=== PATIENT | female | born 1970 | race Caucasian/White ===

== ENCOUNTER → 2017-08-30 10:00 | Outpatient (CLI) | payer OTHER, SELFPAY ==
[2017-08-30 11:27] LABS: Cholesterol 175 mg/dL (200); Glucose 69 mg/dL (74-106); High Density Lipoprotein 63 mg/dL; T4 Free Direct 0.86 ng/dL (0.76-1.46); Thyroid Stim Hormone (TSH) 1.55 uIU/mL (0.358-3.74); Triglycerides 88 mg/dL; Very Low Density Lipoprotein 18 mg/dL (5-40)
== END ==
PROVIDERS: Family Provider Family Medicine; PCP Family Medicine; Visit Provider Family Medicine
DX: F41.8 Other specified anxiety disorders (principal); Z13.1 Encounter for screening for diabetes mellitus; Z13.220 Encounter for screening for lipoid disorders
CPT/HCPCS: 36415; 80061; 82947; 84439; 84443

== ENCOUNTER → 2018-04-24 14:11 | Outpatient (CLI) | payer OTHER, SELFPAY ==
--- NOTE | 2018-04-24 14:30 | RAD_ITS ---
STUDY: X-RAY CHEST REASON FOR EXAM: Female, 47 years old. Cough and fever. TECHNIQUE: Frontal and lateral views of the chest. COMPARISON: 03/22/2015. FINDINGS: There is hyperinflation of the lungs consistent with chronic obstructive lung disease (COPD). No infiltrates or effusions. There is no demonstrated pleural abnormality. Normal size heart. Normal mediastinum and saroj. Normal visualized pulmonary arteries. Normal visualized aortic arch and descending thoracic aorta. Normal visualized thoracic spine. Normal visualized ribs, clavicles, and shoulders. There is no demonstrated abnormality of the visualized soft tissue structures of the upper abdomen. RAD/Chest PA and Lateral IMPRESSION: There are findings consistent with COPD. There is no evidence of acute chest disease. Electronically Signed: Donald Davis MD at 17:54 EST , Service support ,
== END ==
PROVIDERS: Family Provider Family Medicine; PCP Family Medicine; Referring Provider Family Medicine; Visit Provider Family Medicine
DX: J18.9 Pneumonia, unspecified organism (principal)
CPT/HCPCS: 71046

== ENCOUNTER → 2020-03-01 10:23 | Outpatient (CLI) | payer OTHER, SELFPAY | PROVIDERS: PCP Family Medicine; Referring Provider Family Medicine; Visit Provider Family Medicine | DX: Z20.828 Contact with and (suspected) exposure to other viral communicable diseases (principal) | CPT/HCPCS: 87635; C9803; U0003 ==

== ENCOUNTER → 2020-11-20 21:16 | Outpatient (CLI) | payer OTHER, SELFPAY ==
[2020-11-20 22:25] LABS: Probe Check PASS; Specimen Processing Control PASS
== END ==
PROVIDERS: PCP Family Medicine; Referring Provider Physician Assistant Surgical; Visit Provider Physician Assistant Surgical
DX: R09.81 Nasal congestion (principal)
CPT/HCPCS: 87635; U0005; U0003

== ENCOUNTER → 2020-11-24 15:39 | Outpatient (CLI) | payer OTHER, SELFPAY | PROVIDERS: PCP Family Medicine; Referring Provider Family Medicine; Visit Provider Family Medicine | DX: Z20.822 Contact with and (suspected) exposure to COVID-19 (principal) | CPT/HCPCS: 87635; U0005; U0003 ==

== ENCOUNTER 2023-04-27 18:25 | Emergency (ER) | payer OTHER, SELFPAY ==
[2023-04-27 18:26] VITALS: BP 103/76; PULSE 83; RESP 18; TEMP 36.9; O2SAT 100; BMI 21.2
--- NOTE | 2023-04-27 18:56 | CT_ITS ---
STUDY: CT Abdomen And Pelvis W/ Contrast Injection 04/27/2023 9:01 PM REASON FOR EXAM: Female, 52 years old. ABDOMINAL PAIN abdominal pain -- IV PO Contrast TECHNIQUE: Transaxial images were obtained with oral contrast, and Gastrografin and amp; 100mL Isovue-370 intravenous contrast. Individualized dose optimization techniques were used for this CT. COMPARISON: None FINDINGS: The visualized lung bases are unremarkable. The visualized portions of the heart are within normal limits. Unremarkable liver. Unremarkable gallbladder and extrahepatic biliary system. Unremarkable spleen. Unremarkable pancreas. Unremarkable bilateral adrenal glands. No acute findings of the right kidney. No acute findings of the left kidney. Unremarkable visualized stomach. Unremarkable small intestine. Unremarkable colon. The appendix is visualized and appears unremarkable. There are no acute findings of the abdominal aorta. Unremarkable inferior vena cava. Subcentimeter mesenteric lymph nodes. Unremarkable urinary bladder. There is absence of the uterus consistent with a prior hysterectomy. Unremarkable abdominal wall. Unremarkable osseous structures. CT/Abdomen/Pelvis WITH Contrast IMPRESSION: (NOT LISTED IN ORDER OF SIGNIFICANCE) There are no acute findings. Other findings as above. Electronically Signed: Domingo Moyer MD at 21:03 [facility] ,
--- NOTE | 2023-04-27 18:58 | EX.ED.DYSGE1 ---
HPI History of Present Illness Chief Complaint: Abd Pain Informant: patient and spouse/S.O. Narrative Narrative: 52-year-old female presenting to the emergency room with abdominal pain. Patient states about a month ago she began to have diarrhea x 1 daily. She notes a periumbilical left-sided abdominal pain since. Over the past couple days it seems to have moved and settled in the right lower quadrant. She has been trying to eliminate things from her diet with no change. She notes a history of irritable bowel. She states Crohn's disease runs in her family. She denies any fever. She denies any vomiting or rashes. No weight loss. She states that she takes medications as needed for migraines. [facility] Medical History (Updated 04/27/23 @ 21:[address] Darinel Jeffery DO) COVID-19 Migraines Home Medications citalopram 20 mg tablet 20 mg PO DAILY 04/27/23 [History Last Taken Unknown] dicyclomine 10 mg capsule 20 mg (2 x 10 mg) PO TIDAC #20 CAPSULES 04/27/23 [Rx Last Taken Unknown] hydrocodone-acetaminophen 5-325mg 5mg-325mg 1 tab PO Q6H PRN PRN Pain 3 days #12 TABLETS 04/27/23 [Rx Last Taken Unknown] Allergy/AdvReac Type Severity Reaction Status Date / Time erythromycin base Allergy Rash Verified 04/27/23 18:26 Surgical History H/O: hysterectomy Social History Smoking Status: Current some day smoker tobacco type: cigarettes and e-cigarettes ROS ROS ED Constitutional Constitutional ED: Denies chills, fever(s) or weight loss Eyes Eyes: Denies change in vision or diplopia ENT ENT ED: Denies ear pain, rhinorrhea or sore throat Cardiovascular Cardiovascular: Denies chest pain, orthopnea, palpitations or racing heartbeat Respiratory/Chest Respiratory/Chest: Denies cough, dyspnea or orthopnea Gastrointestinal Gastrointestinal: Reports abdominal pain and diarrhea; Denies nausea or vomiting Genitourinary Genitourinary ED: Denies dysuria, hematuria or urinary frequency Musculoskeletal Musculoskeletal: Denies arthralgias or myalgias Integumentary Denies abscess or rash Neurologic Neurologic: Denies headache(s) or weakness Psychiatric Psychiatric: Denies anxiety, depression, suicidal ideation or suicidal thoughts Endocrine Endocrinology: Denies polydipsia, polyphagia or polyuria Allergic/Immunologic Allergic/Immunologic ED: Denies mouth swelling, tongue swelling or urticaria EXAM Physical Exam Const Vital Signs: 04/27/23 18:26 04/27/23 22:03 Temperature 98.5 F Temperature Source Temporal Pulse Rate 83 74 Respiratory Rate 18 16 Blood Pressure 103/76 109/70 Blood Pressure Mean 85 83 Pulse Ox 100 97 Oxygen Delivery Method Room Air Positive well nourished and well developed General Appearance ED: well developed HEENT Reports normocephalic, head/scalp atraumatic and moist mucous membranes Eyes PERRL and EOMs intact bilaterally Neck no lymphadenopathy, supple and no JVD Resp normal respiratory effort and clear to auscultation bilaterally Cardio regular rate, regular rhythm and no murmurs GI GI Narrative: Diffuse tenderness to palpation throughout the abdomen greatest in the right lower quadrant. The abdomen is still soft. I would not characterize this as surgical. Inspection: Negative for abdominal distention Auscultation: normoactive bowel sounds Palpation: soft, tender and guarding Back/Spine no CVA tenderness and normal ROM Extremity normal to inspection General Extremety ED: Negative for edema General Extremity: Negative for edema Neuro oriented x3 and CN's II-XII intact bilaterally Sensorium / Orientation: alert Motor Exam: strength 5/5 throughout Psych mental status grossly normal Mood & Affect: Negative for depressed or tearful Skin no rashes or lesions noted and no wounds MDM MDM MDM Narrative Medical decision making narrative: Patient received morphine Zofran and IV fluids. Basic blood work is essentially normal. White count is 8 lipase 91 of nonspecific meaning. Urinalysis negative. CT of the abdomen pelvis with oral and IV contrast does not really show anything acute. I think at this point it is okay to have the patient discharged home. Differential still fairly broad. There are some mesenteric lymph nodes mentioned by the radiologist but I do not think this should be going on for about a month. I do not see any evidence of ureterolithiasis UTI colitis uterine/ovarian pathology biliary dysfunction or masses. Daily diarrhea has not resulted in significant electrolyte abnormalities or dehydration. Could very well be allergic or intolerance as well as potential for autoimmune. I recommend that she follow-up with primary care and possibly GI. I do understand GI is very difficult to get into especially in her area. Patient notes understanding of her plan. History & Record Review Discussion w/independent historian: Patient and Family Lab Data Attestation: I reviewed the patient's lab results. Labs: Laboratory Results - last 24 hr 04/27/23 04/27/23 19:05 20:00 WBC 8.0 RBC 4.87 Hgb 13.4 Hct 41.0 MCV 84.2 MCH 27.5 MCHC 32.7 RDW Std Deviation 39.3 RDW Coeff of Mckenna 12.8 Plt Count 327 MPV 9.9 Immature Gran % (Auto) 0.300 Neut % (Auto) 44.9 L Lymph % (Auto) 46.0 H [place] % (Auto) 6.6 Eos % (Auto) 1.6 Baso % (Auto) 0.6 Absolute Neuts (auto) 3.6 Absolute Lymphs (auto) 3.67 Nucleated RBC % 0 Sodium 142 Potassium 3.7 Chloride 109 H Carbon Dioxide 30.0 Anion Gap 3 L BUN 11 Creatinine 0.76 Estim Creat Clear Calc 77.92 Est GFR (MDRD) Af Amer 102 Est GFR (MDRD) Non-Af 84 BUN/Creatinine Ratio 14.4 Glucose 99 Calcium 9.0 Total Bilirubin 0.30 Direct Bilirubin 0.07 AST 11 L ALT 16 Alkaline Phosphatase 81 Total Protein 6.9 Albumin 3.7 Globulin 3.2 Lipase 91 H Urine Color Yellow Urine Clarity Clear Urine pH 7.0 Ur Specific [place] 1.010 Urine Protein 15 H Urine Glucose (UA) Normal Urine Ketones Negative Urine Occult Blood 25 H Urine Nitrite Negative Urine Bilirubin Negative Urine Urobilinogen Normal Ur Leukocyte Esterase 25 H Urine RBC 0-5 SEEN Urine WBC 0-5 SEEN Ur Squamous Epith Cells 0-5 SEEN Amorphous Sediment 1+ PHOS Urine Bacteria 0 SEEN Urine Mucus 0 SEEN Urine Trichomonas 0 SEEN Radiography Diagnostic Testing: Clinical Impression(s) from Imaging Studies Abdomen/Pelvis CT 04/27/23 18:56 IMPRESSION: (NOT LISTED IN ORDER OF SIGNIFICANCE) There are no acute findings. Other findings as above. Electronically Signed: Domingo Moyer MD at 21:03 EST , Discharge Plan Triage Chief Complaint: Abd Pain ED Provider: Darinel Jeffery Dx/Rx/DC Orders Clinical Impression: Diarrhea, Abdominal pain Instructions: Abdominal Pain Prescriptions: New hydrocodone-acetaminophen [hydrocodone-acetaminophen] 5-325 mg tablet 1 tab PO Q6H PRN PRN (Reason: Pain) 3 Days Qty: 12 0RF dicyclomine 10 mg capsule 20 mg PO TIDAC Qty: 20 0RF No Action citalopram 20 mg tablet 20 mg PO DAILY Primary Care Provider: Samantha Baker Referrals: Gui Christopher DO [Med Staff - Active Staff] - As soon as possible Michael Guzman MD [Non-Staff] - Disposition Disposition: Home, Self Care
--- OUTSIDE RECORDS SUMMARY | 2023-04-27 19:01 | XMS RPT_ITS | CCD ---
Author Name Unknown Address [id number] [place] [address] Organization [facility] Care Team Providers Care Senior Patient Account Representative Name Role Phone SHEILA CASTILLO Unavailable Unavailable MICHAEL GUZMAN Unavailable Unavailable MICHAEL GUZMAN Unavailable Unavailable Ronnie MOYA, Kyler Sterling Unavailable Thomas MOYA, Michael Aviles Primary Care Provider Thomas MOYA, Michael Aviles Primary Care Provider ILEANA MCKINNEY II Attending ILEANA Ocasio II Referring MICHAEL Alaniz Primary Care Unavailable MICHAEL GUZMAN Primary Care Unavailable MICHAEL GUZMAN Primary Care Unavailable MICHAEL KUHN Attending Unavailable MICHAEL GUZMAN Primary Care Unavailable Allergies Allergy Classification Reported Allergen(s) Allergy Type Date of Onset Reaction(s) Facility (5 sources) Erythromycin; Translations: [ERYTHROMYCIN] Drug Allergy 09-20-2008 [facility] Work Phone: Medications Current Medications Medication Drug Class(es) Dates Sig (Normalized) Sig (Original) predniSONE 10 mg oral tablet (1 source) Start: 07-12-2021 End: 07-21-2021 predniSONE (DELTASONE) 10 mg tablet Indications: Left sided sciatica Take 4 tabs daily for 3 days, then 2 tabs daily for 3 days, then 1 tab daily for 3 days with food. 21 tablet 0 07/12/2021 07/21/2021 Active Completed/Discontinued Medications Medication Drug Class(es) Dates Sig (Normalized) Sig (Original) acetaminophen 500 mg oral tablet (2 sources) take 1 tablet by mouth every eight hours as needed acetaminophen (TYLENOL) 500 mg tablet Take 500 mg by mouth every 8 hours as needed. 0 Active Problems Active Problems Problem Classification Problem Date Documented Date Episodic/Chronic Abdominal pain (7 sources) Left lower quadrant pain; Translations: [Left lower quadrant pain] Onset: 05-17-2011 05-17-2011 Episodic Adjustment disorders (2 sources) Adjustment disorder with depressed mood; Translations: [Adjustment disorder with depressed mood] Onset: 09-19-2010 09-19-2010 Chronic Genitourinary symptoms and ill-defined conditions (1 source) Microscopic hematuria; Translations: [Other microscopic hematuria] Episodic Headache; including migraine (2 sources) Migraine; Translations: [Migraine, unspecified, not intractable, without status migrainosus] Onset: 02-09-2008 08-15-2009 Chronic Open wounds of extremities (1 source) Laceration of hand; Translations: [Laceration without foreign body of left hand, initial encounter] Onset: 01-05-2020 01-05-2020 Episodic Other connective tissue disease (1 source) Tenosynovitis of wrist; Translations: [Synovitis and tenosynovitis, unspecified] Onset: 02-03-2020 02-03-2020 Episodic Other female genital disorders (2 sources) Dyspareunia; Translations: [Dyspareunia] Onset: 07-06-2012 07-06-2012 Chronic Other nervous system disorders (1 source) Carpal tunnel syndrome, left upper limb; Translations: [Carpal tunnel syndrome, left upper limb] Onset: 01-05-2020 01-05-2020 Chronic Spondylosis; intervertebral disc disorders; other back problems (1 source) Sciatica; Translations: [Sciatica, left side] Episodic Unclassified (1 source) Low back pain without sciatica, unspecified back pain laterality, unspecified chronicity; Translations: [Low back pain without sciatica, unspecified back pain laterality, unspecified chronicity] Onset: 05-07-2022 Past or Other Problems Problem Classification Problem Date Documented Date Episodic/Chronic Other connective tissue disease (2 sources) Pain in left lower limb; Translations: [Pain in left leg] Onset: 05-17-2011 05-17-2011 Episodic Other connective tissue disease (2 sources) Pain in limb; Translations: [Pain in unspecified limb] Onset: 05-31-2011 05-31-2011 Episodic Other connective tissue disease (2 sources) Pain in bilateral legs; Translations: [Pain in right leg] Onset: 06-12-2011 06-12-2011 Episodic Other female genital disorders (2 sources) Cervical intraepithelial neoplasia grade 2; Translations: [Moderate cervical dysplasia] Onset: 05-17-2011 05-17-2011 Episodic Other nervous system disorders (2 sources) Skin sensation disturbance; Translations: [Unspecified disturbances of skin sensation] Onset: 05-31-2011 05-31-2011 Episodic Other non-traumatic joint disorders (2 sources) Shoulder joint pain; Translations: [Pain in unspecified shoulder] Onset: 09-06-2009 09-06-2009 Episodic Residual codes; unclassified (2 sources) Family history of ischemic heart disease and other diseases of the circulatory system; Translations: [Family history of other cardiovascular diseases] Onset: 02-09-2008 08-15-2009 Episodic Unclassified (1 source) Problem Urinary tract infections (2 sources) Lower urinary tract infectious disease; Translations: [Urinary tract infection, site not specified] Onset: 02-26-2013 02-26-2013 Episodic Results Test Name Value Interpretation Reference Range Facil ity Vital Signs Date Time Vital Sign Value Performing Clinician Facility 05-07-2022 13:31-0500 Body temperature 98.2 [degF] Bessy Athy PA-C Work Phone: [facility] 05-07-2022 13:31-0500 Body weight 58.06 kg Bessy Athy PA-C Work Phone: [facility] 05-07-2022 13:31-0500 Diastolic blood pressure 60 mm[Hg] Bessy Athy PA-C Work Phone: [facility] 05-07-2022 13:31-0500 Heart rate 72 /min Bessy Athy PA-C Work Phone: [facility] 05-07-2022 13:31-0500 Respiratory rate 16 /min Bessy Athy PA-C Work Phone: [facility] 05-07-2022 13:31-0500 SaO2% (BldA) [Mass fraction] 96 % Bessy Athy PA-C Work Phone: [facility] 05-07-2022 13:31-0500 Systolic blood pressure 106 mm[Hg] Bessy Graham PA-C Work Phone: [facility] 07-12-2021 18:55-0400 Body temperature 97.7 [degF] Ami Praisler-Wood WHIPPER BEATER.[employer] Work Phone: [facility] 07-12-2021 18:55-0400 Body weight 52.8 kg Ami Praisler-Wood WHIPPER BEATER.[employer]ING [employer] Work Phone: [facility] 07-12-2021 18:55-0400 Diastolic blood pressure 64 mm[Hg] Ami Praisler-Wood WHIPPER BEATER.WE[employer]ING [employer]ER Work Phone: [facility] 07-12-2021 18:55-0400 Heart rate 85 /min Ami Praisler-Wood WHIPPER BEATER.WEARING [employer]ER Work Phone: [facility] 07-12-2021 18:55-0400 Respiratory rate 16 /min Ami Praisler-Wood WHIPPER BEATER.WE[employer]ING [employer] Work Phone: [facility] 07-12-2021 18:55-0400 SaO2% (BldA) [Mass fraction] 99 % Ami Praisler-Wood WHIPPER BEATER.WE[employer]ING [employer] Work Phone: [facility] 07-12-2021 18:55-0400 Systolic blood pressure 98 mm[Hg] Ami Praisler-Wood WHIPPER BEATER.WE[employer] Work Phone: [facility] NEGATED: Highlighted [id number] 10:40-0500 BMI (Body Mass Index) 19.28 kg/m2 Valerie Lazo LPN [facility] Work Phone: NEGATED: Highlighted [id number] 10:40-0500 Body weight 54 kg Valerie Lazo LPN [facility] Work Phone: NEGATED: Highlighted [id number] 10:40-0500 Body weight 53.98 kg Valerie Lazo LPN [facility] Work Phone: NEGATED: Highlighted [id number] 10:40-0500 Height 168 cm Valerie Lazo LPN [facility] Work Phone: NEGATED: Highlighted [id number] 10:40-0500 Height 167.64 cm Valerie Lazo LPN [facility] Work Phone: Encounters Encounter Date Encounter Type Care Provider Facility Start: 05-07-2022 End: 05-07-2022 Emergency department patient visit MICHAEL BAM Facility:[facility] Start: 05-07-2022 End: 05-07-2022 ambulatory MICHAEL GUZMAN Facility:[facility] Start: 05-07-2022 End: 05-07-2022 Patient encounter procedure Bessy Graham PA-C Work Phone: [facility] Procedures Date Procedure Procedure Detail Performing Clinician Start: 05-07-2022 Urnls dip stick/tabl et rgnt auto w/o microscopy Bessy Graham PA-C Work Phone: Start: 02-03-2020 End: 02-03-2020 Blood pressure screening not performed - reason not given Kyler Trujillo MD Work Phone: Start: 02-03-2020 End: 02-03-2020 BMI documented within normal parameters - no follow-up plan is required Kyler Trujillo MD Work Phone: Start: 02-03-2020 End: 02-03-2020 Documentation of current medications Kyler Trujillo MD Work Phone: Start: 02-03-2020 End: 02-03-2020 Pain assessment documented as positive - follow-up documented Kyler Trujillo MD Work Phone: Start: 02-03-2020 End: 02-03-2020 Pt tobacco screen rcvd tlk Kyler Trujillo MD Work Phone: Start: 12-23-2017 Mammography Ami Gonzalez WHIPPER [employer]ATER.[employer] Work Phone: Start: 06-29-2015 Colonoscopy Ami Gonzalez WHIPPER BEATER.[employer]ING [employer] Work Phone: NEGATED: Highlighted rowStart: 02-03-2020 End: 02-03-2020 Documentation of current medications Valerie Lazo LPN NEGATED: Highlighted rowStart: 02-03-2020 End: 02-03-2020 Smoking cessation education Valerie Lazo LPN Plan of Treatment Date Care Activity Detail Author Start: 06-28-2025 Colonoscopy COLONOSCOPY [facility] Start: 06-28-2025 COLORECTAL CANCER SCREENING COLORECTAL CANCER SCREENING [facility] Start: 05-07-2025 DIABETES SCREEN DIABETES SCREEN [facility] Start: 03-31-2022 DEPRESSION ASSESSMENT DEPRESSION ASSESSMENT [facility] Start: 11-29-2021 Influenza vaccination [facility] Start: 01-15-2021 COVID-19 VACCINE (3 - Booster for Moderna series) COVID-19 VACCINE (3 - Booster for Moderna series) [facility] Start: 10-10-2020 COVID-19 VACCINE (3 - Booster for Moderna series) COVID-19 VACCINE (3 - Booster for Moderna series) [facility] Start: 07-09-2020 HPV TESTING HPV TESTING [facility] Start: 2020 SHINGRIX VACCINE (1 of 2) SHINGRIX VACCINE (1 of 2) [facility] Start: 02-03-2020 End: 02-03-2020 Appointment Appointment [facility] Work Phone: Start: 02-03-2020 End: 02-03-2020 Appointment Appointment [facility] Work Phone: Start: 12-23-2018 Mammography MAMMOGRAM [facility] Start: 07-09-2018 PAP TESTING PAP TESTING [facility] Start: 07-03-2015 COLOGUARD (FIT-DNA) COLOGUARD (FIT-DNA) [facility] Start: 07-03-[address] COLONOGRAPHY [facility] Start: 07-03-2015 DIABETES SCREEN DIABETES SCREEN [facility] Start: 07-03-2015 FECAL OCCULT BLOOD FECAL OCCULT BLOOD [facility] Start: 07-03-2015 LIPID SCREEN LIPID SCREEN [facility] Start: 07-03-2015 SIGMOIDOSCOPY SIGMOIDOSCOPY [facility] Start: 1989 Urine microalbumin profile DTAP,TDAP,TD (1 - Tdap) [facility] Start: 1988 HEPATITIS C SCREENING HEPATITIS C SCREENING [facility] Start: 1988 HIV SCREENING HIV SCREENING [facility] Start: 1982 Adult depression screening assessment DEPRESSION SCREENING [facility] Start: 1976 PNEUMOCOCCAL (1 - PCV) PNEUMOCOCCAL (1 - PCV) [facility] Start: 1970 HEPATITIS B (1 of 3 - 3-dose series) HEPATITIS B (1 of 3 - 3-dose series) [facility] Bacteria identified in Urine by Culture URINE CULTURE Microbiology Routine Flank pain 05/07/2022 2:08 PM EST [facility] Work Phone: Patient Education \[id number] PtEducatio [id number] [facility] Work Phone: Payers Date Payer Category Payer Unknown [id number] 2018 Unknown MMO MMO [employer] [id number] 2018-Present [phone] [address] [place] [address] PPO [id number] 2018 Unknown MMO MMO [employer] [id number] 2018-Present [phone] [address] [place] [address] PPO [id number] 2017 Unknown [id number] Social History Date Type Detail Facility Start: 02-03-2020 End: 02-03-2020 Assertion Unknown if ever smoked [facility] Work Phone: Start: 11-21-2017 End: 05-07-2022 Tobacco smoking status NHIS Smokes tobacco daily [facility] Work Phone: Start: 11-21-2017 End: 05-07-2022 Cigarettes smoked current (pack per day) - Reported 0.4 [facility] Start: 11-21-2017 End: 05-07-2022 Tobacco use and exposure Smokeless tobacco non-user [facility] Work Phone: Start: 07-12-2021 End: 05-07-2022 Alcohol intake Current drinker of alcohol (finding) [facility] Start: 1970 Sex Assigned At Not on file C [facility] Start: 2021 End: 07-12-2021 Exposure to SARS-CoV-2 (event) Not sure [facility] History of tobacco use Cigarette Smoker [facility] Work Phone: NEGATED: Highlighted rowStart: 02-03-2020 End: 02-03-2020 Tobacco use and exposure Tobacco use and exposure [facility] Work Phone: Progress note 05-07-2022 Note Date & Type Note Facility 05-07-2022 Note HNO ID: [id number] Author: Bessy Graham PA-C Service: ? Author Type: Physician Volunteer Specialist Type: Progress Notes Filed: 05/07/2022 2:06 PM Note Text: This note was created using [employer]. Subjective Mihaela Yi is a 51 year old female. HPI Patient presents with right lower back pain since yesterday. She states she was sitting at her computer when it had started suddenly. She rates it 8/10. States it almost felt like period cramps at first and then she started getting worsening pain throughout the day. She is status post hysterectomy. She denies any dysuria, frequency or hematuria. She denies any fever or vomiting. She does have a history of left-sided sciatica but this does not feel similar. No history of kidney stones. Review of Systems HENT: Negative. Cardiovascular: Negative. Gastrointestinal: Negative. Genitourinary: Positive for pelvic pain. Musculoskeletal: Positive for back pain. PAST MEDICAL HISTORY Diagnosis Date GERD (gastroesophageal reflux disease) Leiomyoma of uterus, unspecified Lower abdominal pain migraines Papanicolaou smear of cervix with low grade squamous intraepithelial lesion (LGSIL) 2011 Current Outpatient Medications Medication Sig Dispense Refill naproxen sodium 220 mg cap Take by mouth. CITALOPRAM HYDROBROMIDE (CELEXA ORAL) Take 10 mg by mouth once daily. acetaminophen (TYLENOL) 500 mg tablet Take 500 mg by mouth every 8 hours as needed. ibuprofen (MOTRIN) 200 mg tablet Take 200 mg by mouth every 6 hours as needed. sumatriptan (IMITREX) 50 mg tablet Take one pill at the onset of migraine, may repeat in 2 hours if needed 6 tablet 2 cyclobenzaprine (FLEXERIL) 10 mg tablet Take 1 tablet by mouth three times daily. (Patient not taking: Reported on 05/07/2022) 12 tablet 0 phenazopyridine (PYRIDIUM) 100 mg tablet Take 1 tablet by mouth three times daily as needed. (Patient not taking: Reported on 06/15/2021 ) 6 tablet 0 No current facility-administered medications for this visit. PAST SURGICAL HISTORY Procedure Laterality Date COLONOSCOPY FLX DX W/COLLJ SPEC WHEN PFRMD 06/29/2015 Colonoscopy COLPOSCOPY CERVIX UPPER/ADJACENT VAGINA 2011 Colposcopy DILATION AND CURETTAGE DXAND/THER NONOBSTETRIC 1995 LAP HYSTERECTOMY FOR UTERUS 250G OR LESS 06/2012 [facility], b/l salpingectomy Dr. Law OFFICE LEEP 05/06/2011 Dr Camejo Bare- need paps until 2031 FAMILY HISTORY Problem Relation Age of Onset Diabetes Mother Osteoporosis Mother Cataract Mother Cancer Father scc Hypertension Father Stroke Father Heart Father [place], age 63 Glaucoma Paternal Grandmother Allergies Son Cancer Brother multiple myeloma Colon Cancer Other none Breast Cancer Other Social History Tobacco Use Smoking status: Every Day Packs/day: 0.40 Types: Cigarettes Smokeless tobacco: Never Vaping Use Vaping Use: Never used Substance Use Topics Alcohol use: Yes Alcohol/week: 5.0 standard drinks Types: 2 Mixed Drinks per week Comment: seldom Drug use: No Objective BP 106/60 Pulse 72 Temp 36.8 ?C (98.2 ?F) Resp 16 Wt 58.1 kg (128 lb) LMP 06/16/2012 SpO2 96% BMI 21.30 kg/m? Physical Exam Vitals reviewed. Constitutional: Appearance: Normal appearance. HENT: Head: Normocephalic and atraumatic. Musculoskeletal: Comments: No tenderness on palpation of the lumbar paraspinal musculature or midline. No tenderness on palpation of the abdomen. She does have some pain with range of motion of the right hip. Skin: General: Skin is warm and dry. Neurological: Mental Status: She is alert. Assessment and Plan ASSESSMENT/PLAN: 1. Flank pain - ICD9: 789.09, ICD10: R10.9 (primary diagnosis) -Concern for possible kidney stone vs possibly musculoskeletal pain. She does have moderate blood on her dip here however. She is visibly uncomfortable in pain here. Recommended she be seen in the emergency department. She will go to [facility]. I did call and give report. - UA DIP, URINE (POC) - URINE CULTURE 2. Microscopic hematuria - ICD9: 599.72, ICD10: R31.29 Bessy Graham PA-C [facility] History of Present illness Narrative 05-07-2022 Bessy Graham PA-C - 05/07/2022 1:59 PM EST Note Date & Type Note Facility 05-07-2022 History of Presen t illness Narrative This note was created using [employer]. Subjective Mihaela Yi is a 51 year old female. HPI Patient presents with right lower back pain since yesterday. She states she was sitting at her computer when it had started suddenly. She rates it 8/10. States it almost felt like period cramps at first and then she started getting worsening pain throughout the day. She is status post hysterectomy. She denies any dysuria, frequency or hematuria. She denies any fever or vomiting. She does have a history of left-sided sciatica but this does not feel similar. No history of kidney stones. Review of Systems HENT: Negative. Cardiovascular: Negative. Gastrointestinal: Negative. Genitourinary: Positive for pelvic pain. Musculoskeletal: Positive for back pain. PAST MEDICAL HISTORY Diagnosis Date GERD (gastroesophageal reflux disease) Leiomyoma of uterus, unspecified Lower abdominal pain migraines Papanicolaou smear of cervix with low grade squamous intraepithelial lesion (LGSIL) 2011 Current Outpatient Medications Medication Sig Dispense Refill naproxen sodium 220 mg cap Take by mouth. CITALOPRAM HYDROBROMIDE (CELEXA ORAL) Take 10 mg by mouth once daily. acetaminophen (TYLENOL) 500 mg tablet Take 500 mg by mouth every 8 hours as needed. ibuprofen (MOTRIN) 200 mg tablet Take 200 mg by mouth every 6 hours as needed. sumatriptan (IMITREX) 50 mg tablet Take one pill at the onset of migraine, may repeat in 2 hours if needed 6 tablet 2 cyclobenzaprine (FLEXERIL) 10 mg tablet Take 1 tablet by mouth three times daily. (Patient not taking: Reported on 05/07/2022) 12 tablet 0 phenazopyridine (PYRIDIUM) 100 mg tablet Take 1 tablet by mouth three times daily as needed. (Patient not taking: Reported on 06/15/2021 ) 6 tablet 0 No current facility-administered medications for this visit. PAST SURGICAL HISTORY Procedure Laterality Date COLONOSCOPY FLX DX W/COLLJ SPEC WHEN PFRMD 06/29/2015 Colonoscopy COLPOSCOPY CERVIX UPPER/ADJACENT VAGINA 2011 Colposcopy DILATION & CURETTAGE DX&/THER NONOBSTETRIC 1995 LAP HYSTERECTOMY FOR UTERUS 250G OR LESS 06/2012 [facility], b/l salpingectomy Dr. Law OFFICE LEEP 05/06/2011 Dr Camejo Bare- need paps until 2031 FAMILY HISTORY Problem Relation Age of Onset Diabetes Mother Osteoporosis Mother Cataract Mother Cancer Father scc Hypertension Father Stroke Father Heart Father [place], age 63 Glaucoma Paternal Grandmother Allergies Son Cancer Brother multiple myeloma Colon Cancer Other none Breast Cancer Other Social History Tobacco Use Smoking status: Every Day Packs/day: 0.40 Types: Cigarettes Smokeless tobacco: Never Vaping Use Vaping Use: Never used Substance Use Topics Alcohol use: Yes Alcohol/week: 5.0 standard drinks Types: 2 Mixed Drinks per week Comment: seldom Drug use: No Objective BP 106/60 Pulse 72 Temp 36.8 C (98.2 F) Resp 16 Wt 58.1 kg (128 lb) LMP 06/16/2012 SpO2 96% BMI 21.30 kg/m Physical Exam Vitals reviewed. Constitutional: Appearance: Normal appearance. HENT: Head: Normocephalic and atraumatic. Musculoskeletal: Comments: No tenderness on palpation of the lumbar paraspinal musculature or midline. No tenderness on palpation of the abdomen. She does have some pain with range of motion of the right hip. Skin: General: Skin is warm and dry. Neurological: Mental Status: She is alert. Assessment and Plan ASSESSMENT/PLAN: 1. Flank pain - ICD9: 789.09, ICD10: R10.9 (primary diagnosis) -Concern for possible kidney stone vs possibly musculoskeletal pain. She does have moderate blood on her dip here however. She is visibly uncomfortable in pain here. Recommended she be seen in the emergency department. She will go to [facility]. I did call and give report. - UA DIP, URINE (POC) - URINE CULTURE 2. Microscopic hematuria - ICD9: 599.72, ICD10: R31.29 Bessy Graham PA-C documented in this encounter [facility] Progress note 07-12-2021 Note Date & Type Note Facility 07-12-2021 Note HNO ID: [id number] Author: Ami Whitehead APRN.WEARING [employer] Service: ? Author Type: Nurse Practitioner Type: Progress Notes Filed: 07/12/2021 7:29 PM Note Text: Subjective HPI Mihaela Yi is a 51 year old female who presents with left sided sciatica. She has had this pain in her left lower SI joint area that radiates to her left buttock and hip. She has some numbness on the bottom of her left foot. She rates her pain 9 at its worst. She denies weakness or change in bowel or bladder control. She has history of sciatica in 2011. She works at home and spends the majority of her time sitting at a computer. She laid on a heating pad all day today. Review of Systems Constitutional: Negative for chills and fever. Genitourinary: Negative. Musculoskeletal: Positive for back pain and joint pain. Negative for falls. Skin: Negative for rash. Neurological: Positive for tingling (bottom of left foot). Negative for focal weakness and weakness. BP 98/64 Pulse 85 Temp 36.5 ?C (97.7 ?F) Resp 16 Wt 52.8 kg (116 lb 6.4 oz) LMP 06/16/2012 SpO2 99% BMI 19.37 kg/m? PAST MEDICAL HISTORY Diagnosis Date - GERD (gastroesophageal reflux disease) - Leiomyoma of uterus, unspecified - Lower abdominal pain - migraines - Papanicolaou smear of cervix with low grade squamous intraepithelial lesion (LGSIL) 2011 PAST SURGICAL HISTORY Procedure Laterality Date - COLONOSCOPY FLX DX W/COLLJ SPEC WHEN PFRMD 06/29/2015 Colonoscopy - COLPOSCOPY CERVIX UPPER/ADJACENT VAGINA 2011 Colposcopy - DILATION AND CURETTAGE DXAND/THER NONOBSTETRIC 1996 - LAP HYSTERECTOMY FOR UTERUS 250G OR LESS 06/2012 [facility], b/l salpingectomy Dr. Law - OFFICE LEE 05/06/2011 Dr Bashir Sarabia- need paps until 2031 ALLERGIES Erythromycin MEDICATIONS naproxen sodium (ALEVE) 220 mg cap Take by mouth. CITALOPRAM HYDROBROMIDE (CELEXA ORAL) Take 10 mg by mouth once daily. acetaminophen (TYLENOL) 500 mg tablet Take 500 mg by mouth every 8 hours as needed. ibuprofen (MOTRIN) 200 mg tablet Take 200 mg by mouth every 6 hours as needed. sumatriptan (IMITREX) 50 mg tablet Take one pill at the onset of migraine, may repeat in 2 hours if needed predniSONE (DELTASONE) 10 mg tablet Take 4 tabs daily for 3 days, then 2 tabs daily for 3 days, then 1 tab daily for 3 days with food. cyclobenzaprine (FLEXERIL) 10 mg tablet Take 1 tablet by mouth three times daily. phenazopyridine (PYRIDIUM) 100 mg tablet Take 1 tablet by mouth three times daily as needed. FAMILY HISTORY Problem Relation Age of Onset - Diabetes Mother - Osteoporosis Mother - Cataract Mother - Cancer Father scc - Hypertension Father - Stroke Father - Heart Father SD, age 63 - Glaucoma Paternal Grandmother - Allergies Son - Cancer Brother multiple myeloma - Colon Cancer Other none - Breast Cancer Other Social History Tobacco Use - Smoking status: Current Every Day Smoker Packs/day: 0.40 - Smokeless tobacco: Never Used Vaping Use - Vaping Use: Never used Substance Use Topics - Alcohol use: Yes Alcohol/week: 5.0 standard drinks Types: 2 Mixed Drinks per week Comment: seldom - Drug use: No Objective Physical Exam Vitals and nursing note reviewed. Constitutional: Appearance: Normal appearance. Musculoskeletal: Lumbar back: Tenderness (SI joint) present. No swelling, edema, deformity, signs of trauma or bony tenderness. Positive left straight leg raise test. Negative right straight leg raise test. Back: Skin: General: Skin is warm and dry. Findings: No erythema or rash. Neurological: General: No focal deficit present. Mental Status: She is alert and oriented to person, place, and time. Motor: No weakness. Coordination: Coordination normal. Gait: Gait normal. Deep Tendon Reflexes: Reflexes normal. ASSESSMENT/PLAN: 1. Left sided sciatica - ICD9: 724.3, ICD10: M54.32 Sciatica - Ice for localized tenderness - Prednisone burst- see orders - Muscle relaxant- see orders - Follow up in 1 weeks or sooner if symptoms persist or worsen - If pain persists or does not remit, recommend XRAY of lumbar spine and PT referral or Pain Management referral. - PREDNISONE 10 MG TABLET - CYCLOBENZAPRINE 10 MG TABLET - Follow-up with your PCP in 3-5 days if symptoms have not improved or sooner if symptoms worsen - Discussed red flags and need for immediate medical evaluation if any occur. - Discussed supportive care treatment with fluids, rest and analgesia. - Discussed expected course of illness Ami Whitehead APRN.CNP [facility] History of Present illness Narrative 07-12-2021 Ami Whitehead APRN.CNP - 07/12/2021 7:23 PM EDT Note Date & Type Note Facility 07-12-2021 History of Presen t illness Narrative Images from the original note were not included. Subjective HPI Mihaela Yi is a 51 year old female who presents with left sided sciatica. She has had this pain in her left lower SI joint area that radiates to her left buttock and hip. She has some numbness on the bottom of her left foot. She rates her pain 9 at its worst. She denies weakness or change in bowel or bladder control. She has history of sciatica in 2011. She works at home and spends the majority of her time sitting at a computer. She laid on a heating pad all day today. Review of Systems Constitutional: Negative for chills and fever. Genitourinary: Negative. Musculoskeletal: Positive for back pain and joint pain. Negative for falls. Skin: Negative for rash. Neurological: Positive for tingling (bottom of left foot). Negative for focal weakness and weakness. BP 98/64 Pulse 85 Temp 36.5 C (97.7 F) Resp 16 Wt 52.8 kg (116 lb 6.4 oz) LMP 06/16/2012 SpO2 99% BMI 19.37 kg/m PAST MEDICAL HISTORY Diagnosis Date GERD (gastroesophageal reflux disease) Leiomyoma of uterus, unspecified Lower abdominal pain migraines Papanicolaou smear of cervix with low grade squamous intraepithelial lesion (LGSIL) 2011 PAST SURGICAL HISTORY Procedure Laterality Date COLONOSCOPY FLX DX W/COLLJ SPEC WHEN PFRMD 06/29/2015 Colonoscopy COLPOSCOPY CERVIX UPPER/ADJACENT VAGINA 2011 Colposcopy DILATION & CURETTAGE DX&/THER NONOBSTETRIC 1995 LAP HYSTERECTOMY FOR UTERUS 250G OR LESS 06/2012 javier CABELLO/catherine salpingectomy Dr. Law OFFICE LEEP 05/06/2011 Dr Camejo Bare- need paps until 2031 ALLERGIES Erythromycin MEDICATIONS naproxen sodium (ALEVE) 220 mg cap Take by mouth. CITALOPRAM HYDROBROMIDE (CELEXA ORAL) Take 10 mg by mouth once daily. acetaminophen (TYLENOL) 500 mg tablet Take 500 mg by mouth every 8 hours as needed. ibuprofen (MOTRIN) 200 mg tablet Take 200 mg by mouth every 6 hours as needed. sumatriptan (IMITREX) 50 mg tablet Take one pill at the onset of migraine, may repeat in 2 hours if needed predniSONE (DELTASONE) 10 mg tablet Take 4 tabs daily for 3 days, then 2 tabs daily for 3 days, then 1 tab daily for 3 days with food. cyclobenzaprine (FLEXERIL) 10 mg tablet Take 1 tablet by mouth three times daily. phenazopyridine (PYRIDIUM) 100 mg tablet Take 1 tablet by mouth three times daily as needed. FAMILY HISTORY Problem Relation Age of Onset Diabetes Mother Osteoporosis Mother Cataract Mother Cancer Father scc Hypertension Father Stroke Father Heart Father [place], age 63 Glaucoma Paternal Grandmother Allergies Son Cancer Brother multiple myeloma Colon Cancer Other none Breast Cancer Other Social History Tobacco Use Smoking status: Current Every Day Smoker Packs/day: 0.40 Smokeless tobacco: Never Used Vaping Use Vaping Use: Never used Substance Use Topics Alcohol use: Yes Alcohol/week: 5.0 standard drinks Types: 2 Mixed Drinks per week Comment: seldom Drug use: No Objective Physical Exam Vitals and nursing note reviewed. Constitutional: Appearance: Normal appearance. Musculoskeletal: Lumbar back: Tenderness (SI joint) present. No swelling, edema, deformity, signs of trauma or bony tenderness. Positive left straight leg raise test. Negative right straight leg raise test. Back: Skin: General: Skin is warm and dry. Findings: No erythema or rash. Neurological: General: No focal deficit present. Mental Status: She is alert and oriented to person, place, and time. Motor: No weakness. Coordination: Coordination normal. Gait: Gait normal. Deep Tendon Reflexes: Reflexes normal. ASSESSMENT/PLAN: 1. Left sided sciatica - ICD9: 724.3, ICD10: M54.32 Sciatica - Ice for localized tenderness - Prednisone burst- see orders - Muscle relaxant- see orders - Follow up in 1 weeks or sooner if symptoms persist or worsen - If pain persists or does not remit, recommend XRAY of lumbar spine and PT referral or Pain Management referral. - PREDNISONE 10 MG TABLET - CYCLOBENZAPRINE 10 MG TABLET - Follow-up with your PCP in 3-5 days if symptoms have not improved or sooner if symptoms worsen - Discussed red flags and need for immediate medical evaluation if any occur. - Discussed supportive care treatment with fluids, rest and analgesia. - Discussed expected course of illness Ami Whitehead APRN.HERNESTO documented in this encounter [facility] Instructions 07-12-2021 Patient Instructions Note Date & Type Note Facility 07-12-2021 Instructions Ami Whitehead APRN.CNP - 07/12/2021 7:17 PM EDT ASSESSMENT/PLAN: 1. Left sided sciatica - ICD9: 724.3, ICD10: M54.32 Sciatica - Ice for localized tenderness - Prednisone burst- see orders - Muscle relaxant- see orders - Follow up in 1 weeks or sooner if symptoms persist or worsen - If pain persists or does not remit, recommend XRAY of lumbar spine and PT referral or Pain Management referral. - PREDNISONE 10 MG TABLET - CYCLOBENZAPRINE 10 MG TABLET - Follow-up with your PCP in 3-5 days if symptoms have not improved or sooner if symptoms worsen - Discussed red flags and need for immediate medical evaluation if any occur. - Discussed supportive care treatment with fluids, rest and analgesia. - Discussed expected course of illness Ami Whitehead APRN.WEARING APPAREL PRESSER [facility] [address] [place], [place] [address] Emergency Department Diagnosis: Assessment SCIATICA: Your exam shows you have sciatica, a condition most often seen in patients with disc disease of the lower back. Sciatica causes pain to radiate from the lower back or buttock area down the leg. It results from pressure on nerve roots coming out of the spine when a disc deteriorates and pushes to one side. Often there is a history of back problems. In most cases sciatica improves greatly with conservative treatment. Most patients with it are completely better after 2-4 weeks of bed rest and other supportive care. Bed rest reduces the disc pressure greatly; sitting is the worst position since the pressure on the disc is over 5 times greater than it is while lying down. You should avoid bending, lifting, and all other activities which make the problem worse. After the pain improves, you may continue with normal activity, taking brief periods for bed rest throughout the day until you are back to normal. Aspirin, ibuprofen, or other anti-inflammatory drugs are often used to help control pain. Muscle relaxants may help by relieving spasm and providing mild sedation. Cold or heat therapy and massage may also give significant relief. Spinal manipulation is not recommended because it can increase the degree of disc protrusion. Surgery is reserved for patients that do not improve with conservative treatment, or who have signs of severe nerve root pressure. You should see your doctor for follow up care as recommended. A program for back injury rehabilitation with stretching and strengthening exercises is an important part of management. Please call your doctor, a back specialist, or the emergency room right away if you notice increased pain, weakness, or numbness in your legs, or if you have any difficulty with bladder or bowel control. documented in this encounter [facility] Progress note 06-15-2021 Note Date & Type Note Facility 06-15-2021 Note HNO ID: [id number] Author: Ileana Mckinney II, OD Service: ? Author Type: MOUNTER SAXOPHONES Type: Progress Notes Filed: 06/15/2021 12:01 PM Note Text: Assessment and Plan H52.13 Myopia of both eyes (primary encounter diagnosis) H52.223 Regular astigmatism of both eyes H52.4 Presbyopia Comment: Shift in glasses yates demonstrated to patient. Increase in add power for improvement in near vision. Recheck 1-2 years. I have confirmed and edited as necessary the relevant ophthalmic history, ROS, and the neuro exam findings as obtained by others. I have seen and examined Mihaela Yi. I have discussed the case and the management of this patient's care with the Resident/Fellow, if applicable. I also have reviewed and agree with the assessment and plan as stated above and agree with all of its relevant components. Ileana Mckinney II, OD [facility] History of Past illness Narrative 06-29-2015 Note Date & Type Note Facility documented as of this encounter (statuses as of 07/12/2021) [facility] History of Past illness Narrative 06-29-2015 Note Date & Type Note Facility documented as of this encounter (statuses as of 05/07/2022) [facility] Evaluation note Note Date & Type Note Facility documented in this encounter [facility] Evaluation note Note Date & Type Note Facility documented in this encounter [facility] Summary Purpose Family History No Family History Records FoundThere may be information available, but it has not been provided by the sender.No Family History Records FoundNo Family History Records Found Advance Directives No Advanced Directives Records FoundDocuments on File Type Date 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 Review of System There may be information available, but it has not been provided by the sender. History of Present Illness There may be information available, but it has not been provided by the sender. Additional Source Comments INFORMATION SOURCE (unrecogn ized section and content) DATE CREATED AUTHOR AUTHOR'S ORGANIZ ATION 05/08/2022 [facility] DATE CREATED AUTHOR AUTHOR'S ORGANIZ ATION 05/10/2022 [facility] Reason for Visit (unrecogniz ed section and content) Reason Comments Pain Pt reported Hx lower back pain, numbness pain rated 9 Hx 2011 Reason Comments Low Back Pain right side lower morris k into pelvis pain x 1 day Source Comments (unrecognize d section and content) In the event this informatio n is protected by the Federal Confidentiality of Alcohol and Drug Abuse Patient Records regulations: The Federal rules restrict any use of the information to criminally investigate or prosecute any alcohol or drug abuse patient.[facility] the event this information is protected by the Federal Confidentiality of Alcohol and Drug Abuse Patient Records regulations: The Federal rules restrict any use of the information to criminally investigate or prosecute any alcohol or drug abuse patient.[facility] Care Teams (unrecognized sec tion and content) Senior Patient Account Representative Relationship Specialty Start Date End Date Michael Guzman MD PCP - General Family Medicine 02/26/13 FOR RECORDS PERTAINING TO PATIENTS WHO ARE OR HAVE BEEN ENROLLED IN A CHEMICAL DEPENDENCY/SUBSTANCEABUSE PROGRAM, SOME INFORMATION MAY BE OMITTED. This clinical summary was aggregated from multiple sources. Caution should be exercised in using it in the provision of clinical care. This summary normalizes information from multiple sources, and as a consequence, information in this document may materially change the coding, format and clinical context of patient data. In addition, data may be omitted in some cases. CLINICAL DECISIONS SHOULD BE BASED ON THE PRIMARY CLINICAL RECORDS. [employer] provides no warranty or guarantee of the accuracy or completeness of information in this document.
[2023-04-27] MEDS: 0.9% Normal Saline (1000mL) 1,000 ML 1000 ML IV (19:06)
[2023-04-27] MEDS: Ondansetron 4 MG/2 ML Vial IV (19:06)
[2023-04-27] MEDS: Morphine 4 MG/ML Syringe IV (19:07)
[2023-04-27 19:11] LABS: Absolute Lymphocyte Count 3.67 X10^3/uL (0.83-4.51); Absolute Neutrophil Count 3.6 X10^3/uL (2.0-7.7); Basophil# 0.05 X10^3/uL; Basophil% 0.6 % (0-1); Eosinophil# 0.13 X10^3/uL; Eosinophils% 1.6 % (0-5); Hemoglobin 13.4 g/dL (12.0-15.0); Lymphocyte # 3.67 X10^3/ul (0.83-4.51); Mean Corp Hgb Conc 32.7 g/dL (32-36); Mean Corpuscular Hgb 27.5 pg (27.0-32.0); Mean Corpuscular Volume 84.2 fL (81-99); Mean Platelet Vol. 9.9 fl (6.2-12.0); Monocyte# 0.53 X10^3/uL; Monocyte% 6.6 % (0-10); NRBC Flagged by Analyzer 0 % (0-5); Neutrophil # 3.58 X10^3/uL (2.7-7.7); Neutrophil % 44.9 % (47-70); Platelet Count 327 K/mm3 (150-450); RBC Distribution Width CV 12.8 % (11.6-14.6); RBC Distribution Width SD 39.3 fl (35.1-43.9); Red Blood Count 4.87 M/mm3 (4.2-5.4)
[2023-04-27 19:29] LABS: AST(SGOT) 11 U/L (15-37); Alanine Aminotransfer ALT/SGPT 16 U/L (13-56); Albumin, Serum 3.7 g/dL (3.2-5.0); Alkaline Phosphatase 81 U/L (45-117); Anion Gap 3 (5-15); BUN 11 mg/dL (7-18); BUN/Creat Ratio 14.4 RATIO (10-20); Bilirubin, Direct 0.07 mg/dL (0.00-0.30); Chloride 109 mmol/L (98-107); Creatinine, Serum 0.76 mg/dL (0.55-1.02); EST Glomerular Filtration Rate 84 mL/min (>60); Est Glom Filt Rate - Afr Amer 102 mL/min (>60); Estimated Creatinine Clearance 77.92 ml/min; Globulin 3.2 g/dL (2.2-4.2); Glucose 99 mg/dL (74-106); Lipase 91 U/L (13-75); Potassium 3.7 mmol/L (3.5-5.1); Protein, Total 6.9 g/dL (6.4-8.2); Sodium Level 142 mmol/L (136-145)
[2023-04-27 20:07] LABS: Bacteria 0 SEEN /hpf (None Seen); Mucous, Urine 0 SEEN /hpf (<or=2+)
[2023-04-27 20:10] LABS: Color, Urine Yellow (Yellow); Glucose, Dipstick Normal (Normal); Ketone-Dipstick Negative (Negative); Leukocyte Esterase-Dipstick 25 /ul (Negative); Nitrite-Dipstick Negative (Negative); Occult Blood-Urine 25 /ul (Negative); Protein-Dipstick 15 mg/dl (Negative); Urine Bilirubin Dipstick Negative (Negative); Urine Clarity Clear (Clear); Urine Urobilinogen Normal (Normal)
[2023-04-27 20:23] LABS: Red Blood Cells-Urine 0-5 SEEN /hpf (0-5); Squamous Epithelial Cells - UA 0-5 SEEN /hpf (5-10); White Blood Cells 0-5 SEEN /hpf (0-5)
[2023-04-27 20:25] LABS: Amorphous Sediment 1+ PHOS; Trichomonas 0 SEEN /hpf (None Seen)
[2023-04-27 22:03] VITALS: BP 109/70; PULSE 74; RESP 16; O2SAT 97
== END 2023-04-27 23:07 | disposition home or self-care (01) ==
PROVIDERS: Emergency Provider Emergency Medicine; PCP Nurse Practitioner Family; Visit Provider Emergency Medicine
DX: R19.7 Diarrhea, unspecified (principal); R10.9 Unspecified abdominal pain; F17.210 Nicotine dependence, cigarettes, uncomplicated; F17.290 Nicotine dependence, other tobacco product, uncomplicated; Z79.899 Other long term (current) drug therapy; Z86.16 Personal history of COVID-19
CPT/HCPCS: 74177; 80048; 80076; 81001; 83690; 85025; 96361; 96374; 96375; 99283; J7030; Q9967; A4216; J2405

== ENCOUNTER 2023-12-21 17:21 | Emergency (ER) | payer OTHER, SELFPAY ==
[2023-12-21 17:22] VITALS: BP 98/85; PULSE 91; RESP 16; TEMP 35.8; O2SAT 100; BMI 20.7
[2023-12-21 18:07] LABS: Mucous, Urine 0 SEEN /hpf (<or=2+)
[2023-12-21 18:08] LABS: Color, Urine Yellow (Yellow); Glucose, Dipstick Normal (Normal); Ketone-Dipstick Negative (Negative); Leukocyte Esterase-Dipstick 100 /ul (Negative); Nitrite-Dipstick Negative (Negative); Occult Blood-Urine 50 /ul (Negative); Protein-Dipstick 15 mg/dl (Negative); Specific Gravity, Urine 1.025 (1.002-1.030); Urine Bilirubin Dipstick Negative (Negative); Urine Clarity Clear (Clear); Urine Urobilinogen Normal (Normal)
[2023-12-21 18:08] LABS: Absolute Lymphocyte Count 3.08 X10^3/uL (0.83-4.51); Absolute Neutrophil Count 5.7 X10^3/uL (2.0-7.7); Basophil# 0.05 X10^3/uL; Basophil% 0.5 % (0-1); Eosinophil# 0.05 X10^3/uL; Eosinophils% 0.5 % (0-5); Hematocrit 43.2 % (37-47); Hemoglobin 13.7 g/dL (12.0-15.0); Lymphocyte # 3.08 X10^3/ul (0.83-4.51); Lymphocyte % 33.3 % (19-41); Mean Corp Hgb Conc 31.7 g/dL (32-36); Mean Corpuscular Hgb 27.1 pg (27.0-32.0); Mean Corpuscular Volume 85.4 fL (81-99); Mean Platelet Vol. 9.2 fl (6.2-12.0); Monocyte# 0.35 X10^3/uL; Monocyte% 3.8 % (0-10); NRBC Flagged by Analyzer 0 % (0-5); Neutrophil # 5.68 X10^3/uL (2.7-7.7); Neutrophil % 61.6 % (47-70); Platelet Count 376 K/mm3 (150-450); RBC Distribution Width SD 40.7 fl (35.1-43.9); Red Blood Count 5.06 M/mm3 (4.2-5.4); White Blood Count 9.2 K/mm3 (4.4-11.0)
[2023-12-21 18:23] LABS: ALB/GLOB Ratio 1.1 RATIO (0.9-2.4); AST(SGOT) 16 U/L (15-37); Alanine Aminotransfer ALT/SGPT 21 U/L (13-56); Albumin, Serum 4.1 g/dL (3.2-5.0); Alkaline Phosphatase 85 U/L (45-117); Anion Gap 6 (5-15); BUN 12 mg/dL (7-18); BUN/Creat Ratio 15.1 RATIO (10-20); Calcium,Total 9.5 mg/dL (8.5-10.1); Chloride 106 mmol/L (98-107); EST Glomerular Filtration Rate 80 mL/min (>60); Est Glom Filt Rate - Afr Amer 97 mL/min (>60); Estimated Creatinine Clearance 72.79 ml/min; Globulin 3.6 g/dL (2.2-4.2); Glucose 125 mg/dL (74-106); Potassium 3.6 mmol/L (3.5-5.1); Protein, Total 7.7 g/dL (6.4-8.2); Sodium Level 139 mmol/L (136-145)
--- NOTE | 2023-12-21 18:23 | EDS_ITS ---
HPI HPI - GI History of Present Illness Chief Complaint: Abd Pain Detail of Chief Complaint: Right flank pain radiating to the umbilicus. Informant: patient and spouse/S.O. Abdominal Pain/Flank Pain Onset: Days (Started past .) Context: Sudden Onset Timing: Continuous Quality: Aching Location: Right Flank Current Severity: Mild Maximum Severity: Moderate Worsened by: Movement Relieved by: Nothing Nausea/Vomiting/Emesis GI Symptom: Positive for Nausea; Negative for Vomiting Diarrhea/Melena/Hematochezia GI Symptom: Positive for Diarrhea, Hematochezia and - (She has also noted mucus.); Negative for Melena Onset: Today Associated Symptoms Associated Symptoms: Negative for Dysuria, Frequency, Hematuria or Urgency Narrative Narrative: Patient is a 53-year-old woman. She has no significant past medical history. There is a family history of renal/ureterolithiasis. Patient does not. She is status post hysterectomy. She denies intolerance to greasy or fried foods. She has no history of diverticulosis or diverticulitis. Patient denies headache, visual, ocular auditory symptoms. Patient denies chest pain, shortness of breath difficulty breathing. She denies cough. Patient complains of right flank pain that radiates to the umbilicus. She denies anorexia. Denies fever or chills. Movement does exacerbate her right flank pain. She denies vaginal symptoms. She has noted blood and mucus in her stool. Stool is not watery. She has not noted blood on the toilet paper. She does have remote history of hemorrhoids. Prior similar symptoms: No Recent Illness/Hospitalization: No PFSH PFS Medical History Migraines COVID-19 Home Medications ?Medication ?Instructions ?Recorded ?Last Taken ?Type citalopram 20 mg tablet 20 mg PO DAILY 04/27/23 Unknown History dicyclomine 10 mg capsule 20 mg (2 x 10 mg) PO TIDAC #20 04/27/23 Unknown Rx CAPSULES hydrocodone-acetaminophen 5-325mg 1 tab PO Q6H PRN PRN Pain 3 days 04/27/23 Unknown Rx 5mg-325mg #12 TABLETS cephalexin 500 mg capsule 500 mg PO Q6 #28 CAPSULES 12/22/23 Unknown Rx hydrocodone-acetaminophen 5-325mg 1 tab PO Q6H PRN PRN Pain 3 days 12/22/23 Unknown Rx 5mg-325mg #10 TABLETS Allergy/AdvReac Type Severity Reaction Status Date / Time erythromycin base Allergy Rash Verified 04/27/23 18:26 Surgical History H/O: hysterectomy Social History (Updated 12/21/23 @ 18:[address] Jamaal Suarez MD) household members: spouse Smoking Status: Current some day smoker tobacco type: cigarettes and e- cigarettes ROS ROS ED Constitutional Constitutional ED: Denies chills, fever(s) or subjective ENT ENT ED: Denies ear pain, rhinorrhea or sore throat Cardiovascular Cardiovascular: Denies chest pain, orthopnea, palpitations or paroxysmal nocturn al dyspnea Respiratory/Chest Respiratory/Chest: Denies cough, dyspnea, dyspnea on exertion, orthopnea or paroxysmal nocturnal dyspnea Gastrointestinal Gastrointestinal: Reports abdominal pain and nausea; Denies constipation, diarrhea, melena or vomiting Genitourinary Genitourinary ED: Denies dysuria, hematuria or urinary frequency Musculoskeletal Musculoskeletal: Denies arthralgias, back pain, myalgias or neck pain Integumentary Denies rash Neurologic Neurologic: Denies headache(s) or paresthesias Hematologic/Lymphatic Hematologic/Lymphatic: Denies easy bleeding or easy bruising EXAM Physical Exam Const Vital Signs: 12/21/23 17:22 12/21/23 19:21 12/21/23 21:00 Temperature 96.4 F L Temperature Source Temporal Pulse Rate 91 74 67 Respiratory Rate 16 18 16 Blood Pressure 98/85 H 106/72 107/70 Blood Pressure Mean 89 83 82 Pulse Ox 100 95 98 Oxygen Delivery Method Room Air Room Air Room Air 12/21/23 23:00 Temperature Temperature Source Pulse Rate 61 Respiratory Rate 16 Blood Pressure 99/71 Blood Pressure Mean 80 Pulse Ox 97 Oxygen Delivery Method Room Air Positive well nourished and well developed General Appearance ED: well developed and NAD; Negative for pallor HEENT Reports TM's clear and dry mucous membranes HEENT Narrative: Patient does endorse dry mouth plus minus thirst. She denies orthostatic symptoms. normocephalic and atraumatic Tympanic Membrane ED: Yes TM's clear Mouth ED: Yes dry mucous membranes Mouth: dry mucous membranes Eyes PERRL and EOMs intact bilaterally General Eye ED: Negative for pale conjunctiva or scleral icterus Neck no lymphadenopathy, supple and no JVD Resp normal respiratory effort and clear to auscultation bilaterally Cardio regular rate, regular rhythm, S1 normal heart sound, S2 normal heart sound and no murmurs GI no masses; Negative for non-tender or non-distended GI Narrative: Patient has tenderness to left lower quadrant. He does not have tenderness of right upper quadrant or right flank area. There is no hepatosplenomegaly. Negative clinical Corrales sign. Auscultation: hypoactive bowel sounds Palpation: soft and tender LLQ Back/Spine no CVA tenderness Thoracic Spine / Upper Back: Negative for thoracic spinal tenderness Lumbar Spine / Lower Back: Negative for lumbar spinal tenderness Extremity full ROM General Extremety ED: Negative for edema or tenderness General Extremity: Negative for edema Neuro CN's II-XII intact bilaterally and moves all extremities Sensorium / Orientation: alert Psych mental status grossly normal and thought process normal Skin no wounds General Skin Exam: Negative for jaundice or pallor Lesions: no lesions Rashes: no rashes MDM MDM MDM Narrative Medical decision making narrative: Differential diagnosis would include muscular pain, ureterolithiasis, urinary tract infection, need also to consider diverticulitis. To evaluate patient's presentation we will obtain CBC, electrolyte panel, UA. Patient's blood pressure is slightly low low at 98/85. She is not tachycardic. She is on no beta-lurdes. Lab Data Attestation: I reviewed the patient's lab results. Lab results narrative: White count, differential and H&H are normal. Comprehensive metabolic panel is remarkable for slight elevation glucose 125 normal CO2 anion gap. Urinalysis is unremarkable. Labs: Laboratory Results - last 24 hr 12/21/23 12/21/23 17:50 18:00 WBC 9.2 RBC 5.06 Hgb 13.7 Hct 43.2 MCV 85.4 MCH 27.1 MCHC 31.7 L RDW Std Deviation 40.7 RDW Coeff of Mckenna 13.0 Plt Count 376 MPV 9.2 Immature Gran % (Auto) 0.300 Neut % (Auto) 61.6 Lymph % (Auto) 33.3 Carlisle % (Auto) 3.8 Eos % (Auto) 0.5 Baso % (Auto) 0.5 Absolute Neuts (auto) 5.7 Absolute Lymphs (auto) 3.08 Nucleated RBC % 0 Sodium 139 Potassium 3.6 Chloride 106 Carbon Dioxide 27.0 Anion Gap 6 BUN 12 Creatinine 0.80 Estim Creat Clear Calc 72.79 Est GFR (MDRD) Af Amer 97 Est GFR (MDRD) Non-Af 80 BUN/Creatinine Ratio 15.1 Glucose 125 H Calcium 9.5 Total Bilirubin 0.50 AST 16 ALT 21 Alkaline Phosphatase 85 Total Protein 7.7 Albumin 4.1 Globulin 3.6 Albumin/Globulin Ratio 1.1 Urine Color Yellow Urine Clarity Clear Urine pH 6.0 Ur Specific Perry 1.025 Urine Protein 15 H Urine Glucose (UA) Normal Urine Ketones Negative Urine Occult Blood 50 H Urine Nitrite Negative Urine Bilirubin Negative Urine Urobilinogen Normal Ur Leukocyte Esterase 100 H Urine RBC 0-5 SEEN Urine WBC 5-10 SEEN Ur Squamous Epith Cells 0-5 SEEN Ur Transition Epith Cell 0-5 SEEN Urine Bacteria RARE Urine Mucus 0 SEEN Urine Yeast RARE Radiography Diagnostic Testing: Clinical Impression(s) from Imaging Studies Abdomen/Pelvis CT 12/21/23 20:49 IMPRESSION: (NOT LISTED IN ORDER OF SIGNIFICANCE) There are no acute findings. Other findings as above. Electronically Signed: Domingo Moyer MD at 21:36 EDT Reading Location ID and State: [facility] / [place] , Service support , Apparently there was a problem with transmission of the report electronically. A written report was faxed to me. There is no acute abnormality to explain her pain. She does have urinary symptoms. With pyuria and bacteria noted in the urine and frequency will treat for infection. Since she is having flank pain will treat with cephalexin. Also will discharge with pain medicine. Treatment and Re-Evaluation :: Patient was treated with cephalexin in the department. She was given more pain medicine. She was discharged with prescription for cephalexin and hydrocodone. Discharge Plan Triage Chief Complaint: Abd Pain ED Provider: Jamaal Suarez Dx/Rx/DC Orders Clinical Impression: Complicated urinary tract infection, Acute right flank pain, Hematochezia Instructions: ED Urinary Retention, Female Prescriptions: New hydrocodone-acetaminophen 5-325 mg tablet 1 tab PO Q6H PRN PRN (Reason: Pain) 3 Days Qty: 10 0RF cephalexin 500 mg capsule 500 mg PO Q6 Qty: 28 0RF No Action citalopram 20 mg tablet 20 mg PO DAILY hydrocodone-acetaminophen [hydrocodone-acetaminophen] 5-325 mg tablet 1 tab PO Q6H PRN PRN (Reason: Pain) 3 Days Qty: 12 0RF dicyclomine 10 mg capsule 20 mg PO TIDAC Qty: 20 0RF Primary Care Provider: Samantha Baker Referrals: Samantha Baker, SUPERINTENDENT CUSTODIAN JANITOR-C [Primary Care Provider] - Print Language: Croatian Disposition Disposition: Home, Self Care
[2023-12-21 18:38] LABS: Bacteria RARE /hpf (None Seen); Red Blood Cells-Urine 0-5 SEEN /hpf (0-5); Squamous Epithelial Cells - UA 0-5 SEEN /hpf (5-10); Transitional Epithelial - Ur 0-5 SEEN /hpf (0-5); White Blood Cells 5-10 SEEN /hpf (0-5); Yeast-Urine RARE /hpf (None Seen)
[2023-12-21 19:21] VITALS: BP 106/72; PULSE 74; RESP 18; O2SAT 95
--- NOTE | 2023-12-21 20:49 | CT_ITS ---
STUDY: CT Abdomen And Pelvis W/ Contrast Injection 12/21/2023 9:33 PM REASON FOR EXAM: Female, 53 years old. ABDOMINAL PAIN RIGHT SIDED PAIN, LLQ PAIN TECHNIQUE: Transaxial images were obtained without oral contrast, and IV 100mL Isovue-370 intravenous contrast. Individualized dose optimization techniques were used for this CT. COMPARISON: 04.27.23 FINDINGS: The visualized lung bases are unremarkable. The visualized portions of the heart are within normal limits. Unremarkable liver. Unremarkable gallbladder and extrahepatic biliary system. Unremarkable spleen. Unremarkable pancreas. Unremarkable bilateral adrenal glands. No acute findings of the right kidney. No acute findings of the left kidney. Unremarkable visualized stomach. Unremarkable small intestine. Unremarkable colon. The appendix is visualized and appears unremarkable. There are no acute findings of the abdominal aorta. Unremarkable inferior vena cava. Subcentimeter mesenteric lymph nodes. Unremarkable urinary bladder. There is absence of the uterus consistent with a prior hysterectomy. There is an umbilical hernia containing fat. Unremarkable osseous structures. CT/Abdomen/Pelvis W IV Cont ONLY IMPRESSION: (NOT LISTED IN ORDER OF SIGNIFICANCE) There are no acute findings. Other findings as above. Electronically Signed: Domingo Moyer MD at 21:36 EDT ,
[2023-12-21 21:00] VITALS: BP 107/70; PULSE 67; RESP 16; O2SAT 98
[2023-12-21] MEDS: Ondansetron 4 MG/2 ML Vial IV (21:08)
[2023-12-21] MEDS: Morphine 4 MG/ML Syringe IV (21:08)
[2023-12-21 23:00] VITALS: BP 99/71; PULSE 61; RESP 16; O2SAT 97
[2023-12-22] MEDS: Cephalexin 250 MG Capsule 500 MG PO (00:19)
[2023-12-22] MEDS: Ondansetron 4 MG/2 ML Vial IV (00:20)
[2023-12-22] MEDS: Morphine 4 MG/ML Syringe IV (00:20)
[2023-12-22 00:22] VITALS: BP 105/78; PULSE 67; RESP 18; TEMP 36.6; O2SAT 99
== END 2023-12-22 00:40 | disposition home or self-care (01) ==
PROVIDERS: Emergency Provider Emergency Medicine; PCP Nurse Practitioner Family; Visit Provider Emergency Medicine
DX: N39.0 Urinary tract infection, site not specified (principal); R10.9 Unspecified abdominal pain; K92.1 Melena; F17.210 Nicotine dependence, cigarettes, uncomplicated; F17.290 Nicotine dependence, other tobacco product, uncomplicated; Z90.710 Acquired absence of both cervix and uterus
CPT/HCPCS: 74177; 80053; 81001; 85025; 96374; 96375; 96376; 99282; Q9967; A4216; J2405

== ENCOUNTER → 2024-02-06 | Outpatient (CLI) | payer OTHER, SELFPAY | END | disposition home or self-care (01) | LOC: BFHLAB 13:34 → LABSPEC 13:35 | PROVIDERS: PCP Family Medicine; Referring Provider Family Medicine; Visit Provider Family Medicine | DX: R82.90 Unspecified abnormal findings in urine (principal) | CPT/HCPCS: 87077; 87086; 87088 ==

== ENCOUNTER 2024-08-31 16:11 | Emergency (ER) | payer OTHER, SELFPAY ==
[2024-08-31 16:12] VITALS: BP 122/85; PULSE 76; RESP 18; TEMP 36.3; O2SAT 99; BMI 21.3
--- NOTE | 2024-08-31 16:39 | EX.ED.DYSGE1 ---
HPI History of Present Illness Chief Complaint: Allergic Reaction Narrative Narrative: Chief complaint and HPI: Allergic reaction. 54-year-old female with past medical history of migraines presents for evaluation of allergic reaction. Patient states yesterday she was working in the garden and today woke up with hives on her bilateral arms. States she took some Benadryl at home. States the rash was spreading to her legs in which she was seen at an urgent care and given a methylprednisone pack. She did start this. Patient states about an hour ago she started having chest tightness and voice changes. Denies any wheezing, nausea, vomiting, mouth or facial swelling. Denies change in detergents, soaps, cleaning solution, new body products. States she has no history of allergic reaction in the past. Review of systems: See HPI Medications: As listed on the chart Allergies: As listed on the chart PFSH: Per chart Vital signs: As listed on the chart. Reviewed. Physical exam: Gen: A&O x3, NAD Head: Normocephalic, atraumatic Eyes: No sclera icterus, conjunctiva clear, PERRL, EOMI, no periorbital edema ENT: Moist mucous membranes, tolerating secretions, posterior oropharynx unremarkable without erythema or swelling, uvula midline, tonsils not enlarged, no oral or tongue swelling, no submandibular swelling, no facial swelling-no angioedema, patient is whispering when she speaks Neck: Trachea midline, No JVD, Full ROM, No meningismus, no swelling, no lymphadenopathy CV: RRR, no murmurs, no peripheral edema Resp: Lungs CTA BL, no w/r/c no stridor, GI: Abd soft, non-distended, non-tender, no r/r/g Musc: Full ROM, no deformity Skin: Warm, dry, hives to the bilateral arms, and slightly scattered on bilateral leg Neuro: Alert, oriented, grossly intact, sensation intact Psych: Cooperative, appropriate mood and affect [facility] Medical History (Updated 08/31/24 @ 18:[address] Hans Amanda, ) Allergic dermatitis Migraines COVID-19 Home Medications ?Medication ?Instructions ?Recorded ?Last Taken ?Type citalopram 20 mg tablet 20 mg PO DAILY 04/27/23 08/30/24 History diphenhydramine HCl 25 mg capsule 25 mg PO Q8H PRN allergic reaction 08/31/24 08/31/24 History (Aler-Cap) epinephrine 0.3 mg/0.3 mL 0.3 mg (0.3 mL) IM Q10M PRN PRN 08/31/24 Unknown Rx injection, auto-injector (EpiPen anaphylaxis #2 ea 2-Favian) famotidine 20 mg tablet (Pepcid) 20 mg PO DAILY 5 days #5 tabs 08/31/24 Unknown Rx prednisone 20 mg tablet 40 mg (2 x 20 mg) PO DAILY 5 days 08/31/24 Unknown Rx #10 tabs sumatriptan succinate 100 mg tablet 100 mg PO PRN 08/31/24 Unknown History Allergy/AdvReac Type Severity Reaction Status Date / Time erythromycin base Allergy Rash Verified 08/31/24 16:12 Surgical History H/O: hysterectomy Social History (Updated 12/21/23 @ 18:[address] Jamaal Suarez MD) household members: spouse Smoking Status: Current some day smoker tobacco type: cigarettes and e-cigarettes EXAM Physical Exam Const Vital Signs: 08/31/24 16:12 08/31/24 17:01 08/31/24 17:32 Temperature 97.3 F L 97.8 F Temperature Source Temporal Oral Pulse Rate 76 87 91 Respiratory Rate 18 16 19 H Blood Pressure 122/85 H 118/98 H Blood Pressure Mean 97 104 Pulse Ox 99 100 Oxygen Delivery Method Room Air Room Air 08/31/24 18:36 Temperature 97.4 F L Temperature Source Pulse Rate 86 Respiratory Rate 17 Blood Pressure 105/68 Blood Pressure Mean 80 Pulse Ox 99 Oxygen Delivery Method MDM MDM MDM Narrative Medical decision making narrative: 54-year-old female with past medical history of migraines presents for evaluation of allergic reaction. Patient woke up with hives on her bilateral arms which are now spreading to her bilateral lower extremities. Took Benadryl earlier today as well as seen urgent care and given a methylprednisone pack. Patient states approximately an hour ago she started to have voice changes and chest tightness. Physical exam is unremarkable except for patient whispering. Lungs are clear to auscultation bilaterally without any wheezing. No swelling or angioedema. Patient is no acute distress. Her vitals are stable. Given patient's symptoms are not improving and given her complaints, patient will be treated for anaphylactic allergic reaction. NS bolus ordered including IM epinephrine, IV Benadryl, IV Pepcid, and IV Solu-Medrol. Albuterol ordered for chest tightness. Patient is not wheezing on physical exam and does not have stridor. Patient will be observed. Patient was monitored in our emergency department for 2-1/2 hours. Her symptoms have improved. Her voice is back to normal. Patient is stable to discharge home. Will have her stop taking the Medrol Dosepak and instead will prescribe her 5 days of prednisone along with 5 days of Pepcid. EpiPen ordered as well. Return precautions explained. Follow-up with PCP. Benadryl as needed for itching. She confirmed understanding of the plan. Impression: 1. Allergic reaction, concern for anaphylaxis 2. Urticaria Discharge Plan Triage Chief Complaint: Allergic Reaction ED Provider: Hans Amanda Dx/Rx/DC Orders Clinical Impression: Anaphylaxis, Allergic reaction Instructions: ED Allergic Reaction Local Other, ED Anaphylaxis Prescriptions: New prednisone 20 mg tablet 40 mg PO DAILY 5 Days Qty: 10 0RF famotidine [Pepcid] 20 mg tablet 20 mg PO DAILY 5 Days Qty: 5 0RF epinephrine [EpiPen 2-Favian] 0.3 mg/0.3 mL auto-injector 0.3 mg IM Q10M PRN PRN (Reason: anaphylaxis) Qty: 2 0RF Rx Instructions: for 2 doses Discontinued methylprednisolone [Medrol (Favian)] 4 mg tablets,dose pack See Rx Instructions .ROUTE .COMPLEX Rx Instructions: orally per package directions No Action citalopram 20 mg tablet 20 mg PO DAILY sumatriptan succinate 100 mg tablet 100 mg PO PRN diphenhydramine HCl [Aler-Cap] 25 mg capsule 25 mg PO Q8H PRN (Reason: allergic reaction) Primary Care Provider: Janine Regalado Referrals: Janine Regalado MD [Primary Care Provider] - Activity Restrictions/Additional Instructions: Follow-up with primary care physician. Use EpiPen if needed. Benadryl as needed for itching and hives. Stop taking the methylprednisolone that was prescribed to you and instead take the medications that I prescribed to you. Return back to the ED if symptoms change or worsen. Stay away from previous allergy exposure. Print Language: [place] Disposition Disposition: Home, Self Care
[2024-08-31] MEDS: DiphenhydrAMINE 50 MG/ML Syringe IV (16:42)
[2024-08-31] MEDS: Albuterol 2.5 MG/3 ML VIAL.NEB. INHALATION (16:43)
[2024-08-31] MEDS: Epi Pen (EQUIV) 0.3 MG Syringe IM (16:44)
[2024-08-31] MEDS: MethylPREDNISolone 125 MG/2 ML Vial IV (16:52)
[2024-08-31] MEDS: 0.9% Normal Saline (1000mL) 1,000 ML 999 ML IV (16:55)
[2024-08-31 17:01] VITALS: PULSE 87; RESP 16
[2024-08-31] MEDS: Famotidine 200 MG/20 ML MDV 20 MG in 0.9% Normal Saline (Pres. free 8 ML 300 MG IV (17:23)
[2024-08-31 17:32] VITALS: BP 118/98; PULSE 91; RESP 19; TEMP 36.6; O2SAT 100
[2024-08-31 18:36] VITALS: BP 105/68; PULSE 86; RESP 17; TEMP 36.3; O2SAT 99
== END 2024-08-31 18:53 | disposition home or self-care (01) ==
PROVIDERS: Emergency Provider Surgery; PCP Family Medicine; Visit Provider Surgery
DX: L50.9 Urticaria, unspecified (principal); Z90.710 Acquired absence of both cervix and uterus; T78.2XXA Anaphylactic shock, unspecified, initial encounter; F17.210 Nicotine dependence, cigarettes, uncomplicated; Z86.16 Personal history of COVID-19
CPT/HCPCS: 94640; 96361; 96372; 96374; 96375; 99283; A4216

== ENCOUNTER → 2024-10-28 | Outpatient (CLI) | payer OTHER, SELFPAY | END | disposition home or self-care (01) | LOC: LABSPEC 13:30 | PROVIDERS: PCP Family Medicine; Visit Provider Nurse Practitioner Family | DX: R82.90 Unspecified abnormal findings in urine (principal) | CPT/HCPCS: 87086; 87088; 87186 ==